=== PATIENT | female | born 1960 | race Caucasian/White ===

== ENCOUNTER 2022-07-18 08:01 | Outpatient (CLI) | payer OTHER, SELFPAY ==
[2022-07-18 14:05] LABS: Chloride* 103 mmol/L (96-114); Potassium* 4.5 mmol/L (3.6-5.1); Sodium* 137 mmol/L (135-149)
[2022-07-18 14:08] LABS: Blood Urea Nitrogen* 17 mg/dL (7-30); Carbon Dioxide* 26 mmol/L (20-32); Creatinine* 0.8 mg/dL (0.5-1.5); Estimated Glomerular Filt Rate 84 ml/min
[2022-07-18 14:09] LABS: Calcium* 9.6 mg/dL (8.4-10.6); Glucose* 114 mg/dL (60-115)
== END 2022-07-18 08:02 | disposition home or self-care (01) ==
PROVIDERS: PCP Family Medicine; Visit Provider Family Medicine
DX: I10 Essential (primary) hypertension (principal); Z12.4 Encounter for screening for malignant neoplasm of cervix
CPT/HCPCS: 80048; 87624; 88175

== ENCOUNTER 2023-11-15 09:04 | Outpatient (CLI) | payer OTHER, SELFPAY | END 2023-11-15 09:05 | disposition home or self-care (01) | LOC: LKVREF 09:05 | PROVIDERS: PCP Family Medicine; Visit Provider Family Medicine | DX: I10 Essential (primary) hypertension (principal) | CPT/HCPCS: 80048 ==

== ENCOUNTER 2023-12-04 06:32 | Outpatient (CLI) | payer OTHER, SELFPAY ==
--- NOTE | 2023-12-04 07:47 | W.ANESCHARGE ---
Anesthesia Charges Start Date/Time Anesthesia Start Date: 12/04/23 Anesthesia Start Time: 07:25 Stop Date/Time Anesthesia Stop Date: 12/04/23 Anesthesia Stop Time: 07:48
--- NOTE | 2023-12-04 12:11 | W.ANESCHARGE ---
Anesthesia Charges Start Date/Time Anesthesia Start Date: 12/04/23 Anesthesia Start Time: 07:25 Stop Date/Time Anesthesia Stop Date: 12/04/23 Anesthesia Stop Time: 07:48
== END 2023-12-04 06:33 | disposition home or self-care (01) ==
LOC: OP CLINIC 06:33
PROVIDERS: PCP Family Medicine; Visit Provider Internal Medicine
DX: Z12.11 Encounter for screening for malignant neoplasm of colon (principal); K63.5 Polyp of colon; K64.8 Other hemorrhoids
CPT/HCPCS: 00811; 45380; 88305; J2704

== ENCOUNTER 2025-06-11 09:53 | Outpatient (CLI) | payer OTHER, SELFPAY | END 2025-06-11 09:54 | disposition home or self-care (01) | PROVIDERS: PCP Family Medicine; Visit Provider Family Medicine | DX: I10 Essential (primary) hypertension (principal); Z13.6 Encounter for screening for cardiovascular disorders | CPT/HCPCS: 80048; 80061 ==